=== PATIENT | female | born 1995 | race Two or more races ===

== ENCOUNTER 2018-09-30 08:44 | Emergency (ER) | payer MEDICAID, OTHER ==
--- NOTE | 2018-09-30 09:15 | EDPHY ---
H & P Stated Complaint: yesterday night had pelvic pain during intercourse. alsohad numbness x30min Time Seen by Provider: 09/30/18 08:55 HPI/ROS: CHIEF COMPLAINT: Lower abdominal pain HISTORY OF PRESENT ILLNESS: This is a 23-year-old female with a history of ovarian torsion treated surgically when she was 18 years old. She presents this morning with lower abdominal pain that began with intercourse last night. She describes right lower abdominal pain with intercourse at baseline. The pain was initially severe and lasted 30-40 minutes. She took hydrocodone, which helped. Along with lower abdominal pain she also had pain in her low back, extending into both legs. This morning the pain was achy in nature but has been progressively worsening throughout the day. Yesterday she also had dysuria and urinary frequency. She has not had fever. She has no history of STD and denies vaginal discharge or recent vaginal bleeding. Her last normal menses was 1 week ago. She has Nexplanon for control. She had a similar episode of pain 2 weeks ago and was evaluated at [facility]. At that time swabs were taken to assess for infection and she was told that these were normal; no treatment was provided. She has had an abnormal Pap smear in the past. REVIEW OF SYSTEMS: A ten system review of systems was performed and is negative with the exception of the items mentioned in the HPI. Past medical history: Frequent urinary tract infections, kidney stone Past surgical history: Laparoscopic surgery for ovarian torsion secondary to cyst. She is not sure which side was involved. Social history: She works as a teacher, working with infants. She does not use tobacco products. She rarely drinks alcohol. General Appearance: Alert. Vital signs reviewed. Blood pressure 138/72 in triage. Eyes: Pupils equal and round, no conjunctival injection, no discharge. Anicteric. ENT, Mouth: Mucous membranes are moist, no oropharyngeal erythema or edema. Neck: No lymphadenopathy, supple. Respiratory: Lungs are clear to auscultation; no wheezes, rales, or rhonchi. Cardiovascular: Regular rate and rhythm; no murmur, rub, or gallop. Gastrointestinal: Abdomen is soft with tenderness in the suprapubic area and in both lower quadrants, slightly worse on the left than on the right, no palpable masses or organomegaly, bowel sounds normal. Pelvic: Deferred, as she had 1 recently for similar complaint. Skin: Warm and dry, no rashes on exposed skin, normal color. Back: Nontender to palpation over the thoracolumbar spine. No CVAT. Extremities: No lower extremity edema, no calf tenderness or swelling. Neurological: Alert and oriented. Moving all four extremities easily and equally.t touch over all 4 extremities. Deep tendon reflexes are 2+ in the biceps and knees bilaterally. Gait is normal. [id number] is performed accurately. Psychiatric: Normal affect. - Personal History LMP (Females 10-55): 1-7 Days Ago Current Tetanus/Diphtheria Vaccine: Unsure Current Tetanus Diphtheria and Acellular Pertussis (TDAP): Unsure - Medical/Surgical History Hx Asthma: No Hx Chronic Respiratory Disease: No Hx Diabetes: No Hx Cardiac Disease: No Hx Renal Disease: No Hx Cirrhosis: No Hx Alcoholism: No Hx HIV/AIDS: No Hx Splenectomy or Spleen Trauma: No Other PMH: ovary surgery .2013 - Social History Smoking Status: Never smoked Constitutional: Initial Vital Signs Temperature (C) 36.6 C 09/30/18 08:50 Heart Rate 91 09/30/18 08:50 Respiratory Rate 16 09/30/18 08:50 Blood Pressure 138/72 H 09/30/18 08:50 O2 Sat (%) 100 09/30/18 08:50 O2 Delivery Mode Room Air Allergies/Adverse Reactions: No Known Allergies Allergy (Verified 09/30/18 08:55) Home Medications: Medication Instructions Recorded Bcp Implant 04/24/13 AZITHROMYCIN [Z-PACK] 250 mg PO DAILY #4 tab 02/18/16 Benzonatate [Tessalon Pearles] 100 mg PO TID PRN #30 cap 02/18/16 guaiFENesin/CODEINE PHOS 5 - 10 ml PO Q4-6PRN PRN #120 ml 02/18/16 [Robitussin AC] Cefpodoxime Proxetil 100 mg PO BID #14 tablet 08/04/16 Medical Decision Making - Diagnostics Imaging Results: Imaging Impressions Pelvic/Renal Ultrasound 09/30/18 09:08 Impression: 3.3-cm simple appearing cyst in the right ovary. No evidence for torsion. Otherwise, normal pelvic ultrasound. Results called and discussed with Yesica Hassan on 09/30/2018 at 10:43 a.m. ED Course/Re-evaluation: 23-year-old with a history of ovarian torsion secondary to cyst who presents with lower abdominal pain that began abruptly during intercourse. She was evaluated for similar symptoms 2 weeks ago and at that time had a pelvic exam and was tested for infection. She was told that she did not have pelvic/ vaginal infection. Initially she did not want pain medication but changed her mind and received fentanyl 75 mcg IV. Pelvic ultrasound pending. Upon returning from the ultrasound exam she requested additional pain medicine was given Toradol 15 mg IV. I spoke with Dr. Ortez at 10:45 a.m.. He reports a 3.3 cyst on the right ovary. There is blood flow to this ovary, no evidence of torsion. I suspect that her pain is secondary to this cyst. She has had good relief with the IV Toradol. Awaiting urine studies. Re-evaluated at 11:30 a.m.. She is much more comfortable but continues with mild diffuse abdominal pain with palpation. No guarding or peritoneal signs. Urine is positive only for leukocytes. I do not think that this represents an infection. I learned that she was treated with a 5 day course of antibiotics 2 weeks ago after being evaluated at [facility] (as per HPI). She had no improvement with a course of antibiotics. With further questioning I learned that these symptoms are fairly common for her--both pelvic pain and the urinary frequency and occasional dysuria. She describes pain with intercourse. I am recommending follow up with OBGYN. She feels well enough to return home and will take anti-inflammatory medications for pain related to ovarian cyst. We reviewed the danger signs that should prompt her to be re-evaluated immediately. I have not found evidence of a surgical problem. She has a history of kidney stones but this pain is not similar to previous kidney stones. She was recently evaluated for STD/vaginal infection and these tests were negative. She is not having vaginal bleeding and is not . She wonders whether she could have endometriosis but this is not a diagnosis that can be made in the emergency department. Differential Diagnosis: I considered a differential diagnosis that includes but is not limited to STD/ PID, endometriosis, ectopic , ovarian cyst, ovarian torsion, appendicitis, urinary tract infection, ureterolithiasis, pyelonephritis. - Data Points Medications Given: Discontinued Medications Acetaminophen (Tylenol) 1,000 mg PO EDNOW ONE Stop: 09/30/18 12:43 Last Admin: 09/30/18 12:46 Dose: 1,000 mg Fentanyl (Sublimaze) 75 mcg IVP EDNOW ONE Stop: 09/30/18 09:17 Last Admin: 09/30/18 09:31 Dose: 75 mcg Sodium Chloride (Ns) 1,000 mls @ 0 mls/hr IV ONCE ONE PRN Reason: Wide Open Stop: 09/30/18 10:14 Last Admin: 09/30/18 10:19 Dose: 1,000 mls Ketorolac Tromethamine (Toradol) 15 mg IVP EDNOW ONE Stop: 09/30/18 10:13 Last Admin: 09/30/18 10:19 Dose: 15 mg Point of Care Test Results: Urine Collection Date 09/30/18 Collection Time 11:49 HCG Results Negative Urine Dip Collection Date 09/30/18 Collection Time 11:49 Specific [place] (1.002-1.030) 1.005 PH (5.0-7.5) 7.0 Leukocytes (Negative) 2+ Nitrites (Negative) Negative Protein (Negative) Negative Glucose (Negative) Negative Ketones (Negative) Negative Urobilnogen (0.2-1.0 EU) 0.2 Bilirubin (Negative) Negative Blood (Negative) 1+ Departure - Departure Disposition: Home, Routine, Self-Care Clinical Impression: Cyst of ovary Qualifiers: Laterality: right Qualified Code(s): N83.201 - Unspecified ovarian cyst, right side Condition: Good Instructions: Ovarian Cyst (ED) Additional Instructions: Adult Pain & Fever Control: We recommend Acetaminophen (Tylenol) and Ibuprofen (Motrin,Advil) for pain and fever control. When fever is high or pain severe, both drugs can be used at the same time, but at different intervals. Please note the time differences. Your dose is: Acetaminophen 650mg every 4 to 6 hours Ibuprofen 600mg every 6 hours with food Note: do not take Acetaminophen with Hydrocodone (Vicodin, Lortab) or Oycodone (Percocet). These medications also contain Acetaminophen. No more than 3000mg of Acetaminophen should be taken in 24 hours (for an adult). I recommend taking ibuprofen regularly for the next couple of days--every six hours (with food). I also recommend following up with an OBGYN physician for further evaluation of your pelvic pain. If you develop fever, vomiting, diarrhea, severe persistent pain--you should be re-evaluated. Referrals: [facility],. [Primary Care Provider] - As per Instructions
[2018-09-30] MEDS ORDERED: fentaNYL 100 MCG/2 ML INJ IVP ONE (09:16)
[2018-09-30] MEDS ORDERED: KETOROLAC 30 MG/1 ML SDV IVP ONE (10:12)
[2018-09-30] MEDS ORDERED: NS 1,000 ML IV ONE (10:13)
[2018-09-30] MEDS ORDERED: ACETAMINOPHEN 500 MG TAB PO ONE (12:42)
[2018-09-30 12:48] VITALS: BP 105/66
== END 2018-09-30 12:47 | disposition home or self-care (01) ==
LOC: CED 08:44
DX: N83.291 Other ovarian cyst, right side (principal); R30.0 Dysuria; R35.0 Frequency of micturition; Z87.440 Personal history of urinary (tract) infections
CPT/HCPCS: 76856-PO; 96374; J1885; J3010

== ENCOUNTER 2018-10-02 01:46 | Emergency (ER) | payer OTHER ==
[2018-10-02] MEDS ORDERED: fentaNYL 100 MCG/2 ML INJ IVP ONE (02:30)
[2018-10-02] MEDS ORDERED: PHENAZOPYRIDINE HCL 200 MG TAB PO ONE ×2 (02:30→03:19)
--- NOTE | 2018-10-02 03:03 | EDPHY ---
H & P Stated Complaint: L flank pain, recent visit for ovarian cyst. Time Seen by Provider: 10/02/18 01:52 HPI/ROS: CC: "I have pelvic pain" HPI: This 23-year-old female with past medical history of a right-sided ovarian cyst and frequent urinary tract infections as well as surgery for an ovarian torsion when she was younger presents to emergency department today complaining of left flank pain and suprapubic pressure. She has also been having frequent and painful urination. She denies fever but she has been having chills. She has no nausea or vomiting. She took 600 mg of ibuprofen this evening without relief. The pain is still a 7/10. She was just seen in the ER on 09/30/2018 and had a pelvic ultrasound which showed a 3.3 cm simple appearing cyst in the right ovary with out evidence for torsion. She is not having significant pain on the right at this time. She called to make a follow- up appointment with her clinic ([facility]) and states when she told them the ER doctor wanted her to see a scientific database curator they told her that would call her back and she has not heard anything yet. REVIEW OF SYSTEMS: Constitutional: No fever. Eyes: No discharge. ENT: No sore throat. Respiratory: No cough, no shortness of breath. Cardiac: No chest pain, no palpitations. Gastrointestinal: See HPI. Genitourinary: see HPI. Musculoskeletal: No back pain. Skin: No rashes. Neurological: No headache. - Personal History LMP (Females 10-55): Extended Cycle BCP/Inj Current Tetanus/Diphtheria Vaccine: Unsure Current Tetanus Diphtheria and Acellular Pertussis (TDAP): Unsure - Medical/Surgical History Hx Asthma: No Hx Chronic Respiratory Disease: No Hx Diabetes: No Hx Cardiac Disease: No Hx Renal Disease: No Hx Cirrhosis: No Hx Alcoholism: No Hx HIV/AIDS: No Hx Splenectomy or Spleen Trauma: No Other PMH: torsion of ovary surgery-2013, R arm fracture. - Social History Smoking Status: Never smoked Constitutional: Initial Vital Signs Heart Rate 86 10/02/18 01:59 Respiratory Rate 18 10/02/18 01:59 Blood Pressure 124/63 H 10/02/18 01:59 O2 Sat (%) 97 10/02/18 01:59 O2 Delivery Mode Room Air Allergies/Adverse Reactions: No Known Allergies Allergy (Verified 10/02/18 01:50) Home Medications: Medication Instructions Recorded Bcp Implant 04/24/13 Ciprofloxacin [Cipro] 500 mg PO BID #14 tab 10/02/18 Phenazopyridine HCl [Pyridium] 200 mg PO TID PRN 2 Days #6 tablet 10/02/18 Medical Decision Making ED Course/Re-evaluation: The patient was seen and examined. Vital signs reviewed. Prior records reviewed. Patient's pain was on her left lower quadrant therefore I was not concerned about appendicitis or the previously seen ovarian cyst. The patient' s urine had leukocyte esterase on her prior visit but no other findings and it was not thought to be a urinary tract infection. However today the patient's urine is significantly more suggestive of a UTI as are her symptoms. She had nitrates, leukocyte esterase, blood, and greater than 50 white blood cells on urine microscopy. The urine was sent for culture and that is pending at this time. In the emergency department this evening the patient received Rocephin 1 gm IVPB, Fentanyl 50 mcg IV push, Toradol 15 mg IV push, morphine 2 mg IV push, and 200 mg of Pyridium orally. She was given a take-home pack of Cipro 500 mg, a take-home pack of Zofran, and 1 tablet of Pyridium to take with her at discharge. She was given a prescription for 7 day course of ciprofloxacin 500 mg twice a day and another 6 tablets of Pyridium. She was cautioned not to use excessive amounts of the Pyridium or [id number] azo due to the possible side effect of methemoglobinemia. The patient was advised to follow up with her primary care provider on Thursday if she is not feeling better or return to the emergency room sooner if symptoms change or worsen as discussed. - Data Points Laboratory Results: 10/02/18 02:00 Urine Color YELLOW Urine Appearance MODERATELY TURBID Urine pH 5.0 (5.0-7.5) Ur Specific [place] 1.019 (1.002-1.030) Urine Protein 2+ H (NEGATIVE) Urine Ketones NEGATIVE (NEGATIVE) Urine Blood 2+ H (NEGATIVE) Urine Nitrate POSITIVE H (NEGATIVE) Urine Bilirubin NEGATIVE (NEGATIVE) Urine Urobilinogen NEGATIVE EU EU (0.2-1.0) Ur Leukocyte Esterase 3+ H (NEGATIVE) Urine RBC 25-50 /hpf H /hpf (0-3) Urine WBC 50-182 /hpf H /hpf (0-3) Ur Epithelial Cells TRACE /lpf /lpf (NONE-1+) Urine Bacteria 1+ /hpf H /hpf (NONE SEEN) Urine Mucus TRACE /lpf /lpf (NONE-1+) Urine Glucose NEGATIVE (NEGATIVE) Medications Given: Discontinued Medications Fentanyl (Sublimaze) 50 mcg IVP EDNOW ONE Stop: 10/02/18 02:31 Last Admin: 10/02/18 02:41 Dose: 50 mcg Ceftriaxone Sodium/Dextrose (Rocephin 1 Gm (Premix)) 50 mls @ 100 mls/hr IV EDNOW ONE PRN Reason: Protocol Stop: 10/02/18 02:59 Last Admin: 10/02/18 02:42 Dose: 50 mls Phenazopyridine HCl (Pyridium) 200 mg PO EDNOW ONE Stop: 10/02/18 02:31 Last Admin: 10/02/18 02:41 Dose: 200 mg Point of Care Test Results: Urine Collection Date 10/02/18 Collection Time 02:00 HCG Results Negative Urine Dip Collection Date 10/02/18 Collection Time 02:00 Specific [place] (1.002-1.030) 1.030 PH (5.0-7.5) 6.0 Leukocytes (Negative) 1+ Nitrites (Negative) Positive Protein (Negative) 2+ Glucose (Negative) Negative Ketones (Negative) Negative Urobilnogen (0.2-1.0 EU) 0.2 Bilirubin (Negative) Negative Blood (Negative) 2+ Departure - Departure Disposition: Home, Routine, Self-Care Clinical Impression: Urinary tract infection Qualifiers: Urinary tract infection type: acute cystitis Hematuria presence: with hematuria Qualified Code(s): N30.01 - Acute cystitis with hematuria Condition: Good Instructions: Phenazopyridine (By mouth), Urinary Tract Infection in Women (ED) , Ondansetron (By mouth) Additional Instructions: Drink plenty of fluids. Take antibiotics as directed. Follow up with your primary care provider on Thursday if no improvement. Otherwise make a follow up with your scientific database curator as previously directed. Return to the emergency room sooner if symptoms change or worsen as discussed. Referrals: [facility],. [Clinic] - As per Instructions Prescriptions: Ciprofloxacin [Cipro] 500 mg PO BID #14 tab Phenazopyridine HCl [Pyridium] 200 mg PO TID PRN 2 Days #6 tablet PRN Reason: Painful urination
[2018-10-02] MEDS ORDERED: KETOROLAC 15 MG/1 ML SDV IVP ONE (03:18)
[2018-10-02] MEDS ORDERED: ONDANSETRON 4MG PREPACK#2 BTL TAKEHOME ONE (03:33)
[2018-10-02] MEDS ORDERED: CIPROFLOXACIN 500MG PREPACK#2 BTL TAKEHOME ONE (03:43)
[2018-10-02 03:54] VITALS: BP 123/75
== END 2018-10-02 04:10 | disposition home or self-care (01) ==
LOC: CED 01:46
DX: N30.01 Acute cystitis with hematuria (principal)
CPT/HCPCS: 96365; J0696; J1885; J2270; J3010